=== PATIENT | male | born 1950 ===

== ENCOUNTER 2018-09-21 06:54 | Emergency (ER) | payer OTHER ==
[~2018-09-21] VITALS: Ht 170.2 cm; Wt 77.1 kg
[2018-09-21] MEDS ORDERED: MUCINEX DM ER1 EAC1 PO (10:34)
[2018-09-21] MEDS ORDERED: PROMETH-CODEIN 65 ML PO (10:34)
== END 2018-09-21 10:46 | disposition home or self-care (01) ==
LOC: ER 06:54
DX: J06.9 Acute upper respiratory infection, unspecified (principal)